=== PATIENT | female | born 1975 | race Hispanic/Latino ===

== ENCOUNTER 2024-09-23 00:06 | Inpatient (IN) | payer BC ==
[2024-09-23] VITALS (11 sets, daily range): BP systolic 142–150; BP diastolic 78–84; PULSE 71–79; RESP 16–20; TEMP 97.7–98.7; O2SAT 99–100
[~2024-09-23] VITALS: Ht 160 cm; Wt 89.8 kg
[2024-09-23 00:49] LABS: BASOPHILS % 0.4 % (0.0-1.0); EOSINOPHILS # (AUTO) 0.5 (0.0-0.4); HEMATOCRIT 34.7 % (34.2-44.1); HEMOGLOBIN 11.2 g/dL (12.0-16.0); LYMPHOCYTES # (AUTO) 1.7 (1.0-3.2); LYMPHOCYTES % 16.5 % (18.0-39.1); MEAN CORPUSCULAR HEMOGLOBIN 32.9 pg (28-32); MEAN CORPUSCULAR HGB CONC 32.3 g/dL (31-35); MEAN CORPUSCULAR VOLUME 102.1 fL (81-99); MONOCYTES # (AUTO) 0.4 (0.2-0.8); MONOCYTES % 3.7 % (4.4-11.3); NEUTROPHILS # (AUTO) 7.7 (2.1-6.9); NEUTROPHILS % 73.1 % (38.7-80.0); PLATELET COUNT 222 x10e3/uL (140-360); RED CELL DISTRIBUTION WIDTH 14.7 % (11.7-14.4); WHITE BLOOD COUNT 10.51 x10e3/uL (4.8-10.8)
[2024-09-23 01:01] LABS: BILIRUBIN,TOTAL 0.5 mg/dL (0.2-1.2); CALCIUM 9.7 mg/dL (8.4-10.2); CREATININE, SERUM 4.78 mg/dL (0.57-1.11)
[2024-09-23 01:20] LABS: LIPASE 81 U/L (8-78)
[2024-09-23 01:30] LABS: TROPONIN I < 0.05 ng/mL (0.0-0.40)
[2024-09-23] MEDS: ONDANSETRON HCL INJ 2MG/ML 2ML 2 MG/ML VIAL IV STA (01:31)
[2024-09-23] MEDS: Morphine 4mg INJECTION 4 MG/ML INJ IV ONE (01:31)
[2024-09-23] MEDS: DICYCLOMINE HCL 20 MG/2 ML VIAL IM ONE (02:19)
[2024-09-23] MEDS: LIDOCAINE VISC 2% SOLN 15 ML UDC PO ONE (02:38)
[2024-09-23] MEDS: BELLADONNA ALK/PHENOBARBITAL 5 ML UDC PO SCH (02:39)
[2024-09-23] MEDS: MAGNESIUM/ALUMINUM/SIMETHICONE 30 ML UDC PO ONE ×2 (02:39→20:58)
[2024-09-23] MEDS ORDERED: Morphine 4mg INJECTION 4 MG/ML INJ IV PRN (04:00)
[2024-09-23] MEDS ORDERED: ONDANSETRON HCL INJ 2MG/ML 2ML 2 MG/ML VIAL IV PRN (04:00)
[2024-09-23] MEDS: SODIUM CHLORIDE 0.9% 250ML 250 ML IV ONE (04:32)
[2024-09-23] MEDS ORDERED: ATORVASTATIN CA10 MG PO (06:43)
[2024-09-23] MEDS ORDERED: SEVELAMER CARB800 MG PO (06:43)
[2024-09-23] MEDS ORDERED: NIFEDIPINE ER90 M1 PO (06:43)
[2024-09-23] MEDS ORDERED: HYDRALAZINE HCL 20 MG/ML VIAL IV PRN (20:45)
[2024-09-23] MEDS: ACETAMIN/BUTALBITAL/CAFFEINE TAB PO ONE (20:57)
[2024-09-23] MEDS: LIDOCAINE 4% PATCH TP SCH (22:28)
[2024-09-24] VITALS (9 sets, daily range): BP systolic 133–143; BP diastolic 71–94; PULSE 66–76; RESP 16–18; TEMP 97.7–98.3; O2SAT 99–100
[2024-09-24 05:47] LABS: BASOPHILS % 0.6 % (0.0-1.0); EOSINOPHILS # (AUTO) 0.3 (0.0-0.4); EOSINOPHILS % 4.8 % (0.0-6.0); HEMATOCRIT 35.7 % (34.2-44.1); HEMOGLOBIN 11.3 g/dL (12.0-16.0); LYMPHOCYTES # (AUTO) 1.9 (1.0-3.2); LYMPHOCYTES % 26.3 % (18.0-39.1); MEAN CORPUSCULAR HEMOGLOBIN 32.7 pg (28-32); MEAN CORPUSCULAR HGB CONC 31.7 g/dL (31-35); MEAN CORPUSCULAR VOLUME 103.2 fL (81-99); MONOCYTES # (AUTO) 0.4 (0.2-0.8); MONOCYTES % 5.3 % (4.4-11.3); NEUTROPHILS # (AUTO) 4.4 (2.1-6.9); NEUTROPHILS % 62.3 % (38.7-80.0); PLATELET COUNT 201 x10e3/uL (140-360); RED BLOOD COUNT 3.46 x10e6/uL (3.6-5.1); RED CELL DISTRIBUTION WIDTH 14.4 % (11.7-14.4); WHITE BLOOD COUNT 7.12 x10e3/uL (4.8-10.8)
[2024-09-24 06:13] LABS: ANION GAP 17.6 mmol/L (8-16); CALCIUM 9.7 mg/dL (8.4-10.2); CREATININE, SERUM 3.87 mg/dL (0.57-1.11); POTASSIUM 3.6 mmol/L (3.5-5.1)
[2024-09-24 06:41] LABS: CHOL/HDL RATIO 4.7 (3.0-3.6); MAGNESIUM 2.2 MG/DL (1.3-2.1); PHOSPHORUS 3.4 MG/DL (2.3-4.7)
[2024-09-24 07:07] LABS: FREE T4 (FREE THYROXINE) 1.14 ng/dL (0.8-1.8); THYROID STIMULATING HORMONE 0.163 uIU/mL (0.350-4.940)
[2024-09-24] MEDS ORDERED: BUPIVACAINE 0.25% 30ML SDV ONE (13:17)
[2024-09-24] MEDS: SODIUM CHLORIDE 0.9% 1000ML 1,000 ML IV SCH (17:41)
[2024-09-25] VITALS (9 sets, daily range): BP systolic 104–133; BP diastolic 62–74; PULSE 64–84; RESP 18–19; TEMP 97–98.6; O2SAT 94–100
[2024-09-25 05:21] LABS: BASOPHILS % 0.3 % (0.0-1.0); HEMATOCRIT 34.9 % (34.2-44.1); HEMOGLOBIN 11.5 g/dL (12.0-16.0); LYMPHOCYTES # (AUTO) 1.2 (1.0-3.2); LYMPHOCYTES % 12.3 % (18.0-39.1); MEAN CORPUSCULAR HEMOGLOBIN 33.2 pg (28-32); MEAN CORPUSCULAR VOLUME 100.9 fL (81-99); MONOCYTES # (AUTO) 0.4 (0.2-0.8); MONOCYTES % 3.9 % (4.4-11.3); NEUTROPHILS # (AUTO) 8.4 (2.1-6.9); NEUTROPHILS % 82.8 % (38.7-80.0); PLATELET COUNT 229 x10e3/uL (140-360); RED BLOOD COUNT 3.46 x10e6/uL (3.6-5.1); RED CELL DISTRIBUTION WIDTH 14.6 % (11.7-14.4); WHITE BLOOD COUNT 10.11 x10e3/uL (4.8-10.8)
[2024-09-25 05:56] LABS: ALBUMIN 3.7 g/dL (3.5-5.0); ANION GAP 20.6 mmol/L (8-16); BILIRUBIN,TOTAL 0.7 mg/dL (0.2-1.2); CALCIUM 9.9 mg/dL (8.4-10.2); CREATININE, SERUM 6.17 mg/dL (0.57-1.11); POTASSIUM 4.6 mmol/L (3.5-5.1); TOTAL PROTEIN 7.5 g/dL (6.5-8.1)
[2024-09-25] MEDS: NIFEDIPINE CR 30 MG TAB PO SCH (09:09)
[2024-09-25] MEDS: HYDROCODONE/APAP 7.5MG-325MG 1 EA TAB PO PRN (09:17)
[2024-09-25] MEDS: SEVELAMER CARBONATE 800 MG TAB PO SCH (12:00)
[2024-09-25] MEDS ORDERED: ONDANSETRON ODT4 MG PO (14:31)
[2024-09-25] MEDS ORDERED: SODIUM CHLORIDE 0.9% 1000ML 2,000 ML IV PRN (18:45)
[2024-09-25] MEDS ORDERED: SODIUM CHLORIDE 0.9% 250ML 500 ML IV PRN (18:45)
[2024-09-25] MEDS ORDERED: ALBUMIN 25% 12.5GM 0.25 GM/ML BTL IV PRN (18:45)
[2024-09-25] MEDS: ATORVASTATIN 10 MG TAB PO SCH (22:38)
[2024-09-26] VITALS: BP 107/68; PULSE 82; RESP 18; TEMP 98.4; O2SAT 100
[2024-09-26 05:09] VITALS: BP 103/63; PULSE 76; RESP 16; TEMP 97.9; O2SAT 97
[2024-09-26 08:13] VITALS: BP 114/69; PULSE 67; RESP 18; TEMP 98; O2SAT 99
[2024-09-26 10:55] VITALS: BP 114/69; PULSE 67; RESP 18; TEMP 98; O2SAT 99
[2024-09-26 12:22] VITALS: BP 122/78; PULSE 73; RESP 18; TEMP 98.6; O2SAT 100
[2024-09-26] MEDS ORDERED: ONDANSETRON HCL 4 MG ORAL DISINTEGRATING TAB PO PRN (14:00)
[2024-09-26 16:00] VITALS: BP 116/75; PULSE 72; RESP 18; TEMP 98.2; O2SAT 100
[2024-09-26] MEDS ORDERED: CEPHALEXIN500 MG PO (16:16)
[2024-09-27] MEDS ORDERED: PANTOPRAZOLE SOD 40 MG TABEC PO SCH (07:30)
== END 2024-09-26 18:14 | disposition home or self-care (01) | DRG 417 ==
LOC: ER 00:12 → ERHOLD 04:03 → MED/SURG 04:56
PROVIDERS: ADMIT Internal Medicine; ATTEND Internal Medicine
PROC: 5A1D70Z Performance of Urinary Filtration, Intermittent, Less than 6 Hours Per Day (ICD-10-PCS; 2024-09-23)
PROC: 0FT44ZZ Resection of Gallbladder, Percutaneous Endoscopic Approach (ICD-10-PCS; principal; 2024-09-24 13:26)
DX: K80.00 Calculus of gallbladder with acute cholecystitis without obstruction (principal); I12.0 Hypertensive chronic kidney disease with stage 5 chronic kidney disease or end stage renal disease; N18.6 End stage renal disease; Z99.2 Dependence on renal dialysis; R51.9 Headache, unspecified; M54.9 Dorsalgia, unspecified
CPT/HCPCS: 36415; 71045; 76705; 80048; 80053; 80061; 83036; 83690; 83735; 84100; 84439; 84443; 84484; 84702; 85025; 88304; 93005; 94799; 99284; C1766; J2270; J2405; J2470; J2543; J7030; J7050